=== PATIENT | female | born 1945 | race Caucasian/White ===

== ENCOUNTER 2018-03-07 13:44 | Emergency (ER) | payer OTHER ==
--- NOTE | 2018-03-07 13:52 | PDOC ---
History of Present Illness - General Chief Complaint: Injury Stated Complaint: LEFT WRIST PAIN - History of Present Illness Initial Comments: 03/07/18 13:53 The patient is a 72 year old female with a PMH of HTN, HLD, Colon CA (s/p resection and chemotherapy in 2009) and AFib (not on A/C) who presents to the ED c/o L wrist injury. Patient states she was standing up on the cushions of her couch trying to adjust window curtains when she caught her foot on a blanket and fell. Patient states it occurred so suddenly she is unable to recall exactly how she fell. No head trauma, no LOC. Ambulatory post fall. Patient took an Alleve yesterday evening after the fall and another this morning with some relief of her pain and decided to come to the ED today because of the swelling. Allergy: macrolides Surgery: colon cancer resection Social: denies toxic habits [id number] 03/07/18 14:46 Past History - Past Medical History Home Medications: Ambulatory Orders Aspirin [ASA -] 162 mg PO DAILY 03/07/18 Atorvastatin Ca [Lipitor] 10 mg PO HS 03/07/18 Metoprolol Succinate 12.5 mg PO BID 03/07/18 Review of Systems - Review of Systems Constitutional: No: Chills, Fever HEENTM: No: Blurred Vision, Double Vision Respiratory: No: Cough, Shortness of Breath Cardiac (ROS): No: Chest Pain, Lightheadedness, Palpitations ABD/GI: No: Constipated, Diarrhea, Nausea, Vomiting *Physical Exam - Physical Exam General Appearance: Yes: Nourished, Appropriately Dressed HEENT: positive: Normal Voice, Hearing Grossly Normal Neck: positive: Normal Thyroid, Supple Respiratory/Chest: positive: Lungs Clear, Normal Breath Sounds. negative: Labored Respiration, Rapid RR Cardiovascular: positive: S1, S2 Gastrointestinal/Abdominal: positive: Normal Bowel Sounds, Soft Extremity: positive: Other (2+ radial pulse, no anatomic snuffbox tenderness, tendons intact, TTP @ ulnar head and wrist) Integumentary: positive: Normal Color, Warm, Swelling (L hand and wrist) Neurologic: positive: Fully Oriented, Alert Medical Decision Making - Medical Decision Making 03/07/18 13:54 72 year old s/p wrist injury following mechanical fall. VS unremarkable. NVI. ROM with pain, tenderness @ distal ulna. Will XR L hand and wrist. Patient declining pain medication at this time. Reassess. 03/07/18 14:33 03/07/18 14:45 Patient reassessed @ bedside. Resting comfortably. Continues to decline pain medication. XR pending. 03/07/18 15:12 Wet read of XR shows comminuted fracture of distal radius. Volar splint applied. Ortho contacted to establish follow-up 03/07/18 15:31 Awaiting call back from ortho, will discharge patient home with ortho referral, return precautions and supportive care. I discussed the physical exam findings, ancillary test results and final diagnoses with the patient. I answered all of the patient's questions. The patient was satisfied with the care received and felt comfortable with the discharge plan and treatment plan. The patient will return to the Emergency Department with any new, persistent or worsening symptoms *DC/Admit/Observation/Transfer Diagnosis at time of Disposition: Radial fracture - Discharge Dispostion Disposition: HOME Condition at time of disposition: Good Decision to Admit order: No - Referrals Referrals: Fortino Ramos MD [Staff Physician] - - Patient Instructions Printed Discharge Instructions: How to Prevent Falls Additional Instructions: An x-ray of your wrist shows a fracture of the radius bone of your arm. Please make an appointment to follow-up with Dr. Ramos (Orthopedic Surgery) in the next 24-48 hours. You can take Tylenol (up to 4000 mg daily) alternating with Motrin (up to 3200 mg daily) for your pain. Return to the Emergency Department for any new/worsening/concerning symptoms. - Post Discharge Activity
[2018-03-07 14:08] VITALS: BP 149/80; PULSE 67; TEMP 97.7; BMI 22.4
--- NOTE | 2018-03-07 14:19 | PDOC ---
Attending Attestation - Resident Resident Name: Sonja Robertson - ED Attending Attestation I have performed the following: I have examined & evaluated the patient, The case was reviewed & discussed with the resident, I agree w/resident's findings & plan, Exceptions are as noted - HPI HPI: 03/07/18 15:18 72 yo F here s/p fall night prior fell off couch, landed on outstretched arm, c/ o right wrist pain. no elbow or shoulder pain. today noted pain worsen and swelling eccymosis. denies head trauma no loc no other injuries from fall. - Physicial Exam PE: 03/07/18 15:19 awake alert . left arm with swelling ttp over distal radius and ulna. no snuff box tenderness. 2 + radial and ulnar pulses. nuerologically intact distally. gcs 15. - Medical Decision Making 03/07/18 15:20 pt with distal radius fx on xray. placed in volar splint. nv intact following. dr. kip clemens, awaiting call back pt given referral for close followup.
[2018-03-07] MEDS ORDERED: ACETAMINOPHEN 325 MG TABLET (FP) PO ONE (14:22)
[2018-03-07] MEDS ORDERED: ACETAMINOPHEN 325 MG TABLET (FP) ONE (14:59)
== END 2018-03-07 15:41 | disposition home or self-care (01) ==
LOC: FER 13:44
DX: S52.92XA Unspecified fracture of left forearm, initial encounter for closed fracture (principal); W18.30XA Fall on same level, unspecified, initial encounter; Y93.89 Activity, other specified; Y92.89 Other specified places as the place of occurrence of the external cause; I10 Essential (primary) hypertension; E78.5 Hyperlipidemia, unspecified; Z85.038 Personal history of other malignant neoplasm of large intestine
CPT/HCPCS: 73110-TC-LR-FY; 73130-TC-LR-FY; 99281-25